=== PATIENT | male | born 1935 | race Caucasian/White ===

== ENCOUNTER 2020-06-08 07:16 | Day surgery (SDC) | payer MEDICARE, OTHER ==
[~2020-06-08] VITALS: Ht 170.2 cm; Wt 63.8 kg
[~2020-06-08 07:16] MED LIST: ASPI81CH; Amaryl1 MG; CENTRUM MEN'S1 EACH; FINA5; HYDCHL12.5; METANX CAPSULE1 EACH; METF500; Prinivil10 MG; Zocor20 MG
== END 2020-06-08 09:45 | disposition home or self-care (01) ==
LOC: ORSCSDS 07:16
PROVIDERS: Surgery
PROC: 0DJD8ZZ Inspection of Lower Intestinal Tract, Via Natural or Artificial Opening Endoscopic (ICD-10-PCS; principal; 2020-06-08 08:30)
DX: Z12.11 Encounter for screening for malignant neoplasm of colon (principal); Z86.010 Personal history of colon polyps; I10 Essential (primary) hypertension; E78.5 Hyperlipidemia, unspecified; E11.9 Type 2 diabetes mellitus without complications; Z87.891 Personal history of nicotine dependence; Z79.82 Long term (current) use of aspirin; Z79.84 Long term (current) use of oral hypoglycemic drugs; Z79.899 Other long term (current) drug therapy
CPT/HCPCS: 82947; J2704; J7120

== ENCOUNTER → 2023-02-06 | Outpatient (CLI) | payer MEDICARE, OTHER | LOC: LAB SHORT 14:34 → PLD 14:34 | DX: L57.0 Actinic keratosis (principal) | CPT/HCPCS: 88305 ==

== ENCOUNTER → 2023-02-19 | Outpatient (CLI) | payer MEDICARE, OTHER | LOC: LAB 14:28 → LAB SHORT 14:28 | DX: C44.622 Squamous cell carcinoma of skin of right upper limb, including shoulder (principal) | CPT/HCPCS: 88305 ==

== ENCOUNTER → 2023-11-28 | Outpatient (CLI) | payer MEDICARE, OTHER ==
[~2023-11-28] MED LIST changes: -ASPI81CH; +ASPI81CH PO; +BASAGLAR K100 UNIT/1; +FINA5 PO; -HYDCHL12.5; +HYDCHL25 PO; +JARDIANCE10 MG PO; -METF500; +METF500 PO; -Prinivil10 MG; +Prinivil10 MG PO; +ZOCOR20 MG PO
== END ==
LOC: LAB 11:23 → LAB SHORT 11:23
DX: E11.42 Type 2 diabetes mellitus with diabetic polyneuropathy (principal); E11.51 Type 2 diabetes mellitus with diabetic peripheral angiopathy without gangrene; L03.119 Cellulitis of unspecified part of limb; L60.0 Ingrowing nail; L60.3 Nail dystrophy; L97.509 Non-pressure chronic ulcer of other part of unspecified foot with unspecified severity
CPT/HCPCS: 87070; 87075; 87077; 87147; 87186; 87205

== ENCOUNTER 2023-12-18 06:37 | Day surgery (SDC) | payer MEDICARE, OTHER ==
[2023-12-18] VITALS (15 sets, daily range): BP systolic 128–153; BP diastolic 58–125
[~2023-12-18] VITALS: Ht 170.2 cm; Wt 62.7 kg
[~2023-12-18 06:37] MED LIST changes: +ERGO400 PO; +SULTRIDS PO
[2023-12-18] MEDS ORDERED: Heparin Sodium 1000 Units/ML 10ML MDV ONE (07:11)
[2023-12-18] MEDS ORDERED: NS 500 ML IV ONE (07:11)
[2023-12-18] MEDS ORDERED: NS 1,000 ML IV ONE ×2 (07:11→07:15)
[2023-12-18] MEDS ORDERED: Nitroglycerin 2 MG/20 ML BTL ONE (07:11)
[2023-12-18] MEDS ORDERED: Midazolam HCl 1MG / ML 2ML Vial ONE (07:15)
[2023-12-18] MEDS ORDERED: FentaNYL Citrate 50 MCG/ML 2 ML Injection ONE (07:15)
--- NOTE | 2023-12-18 09:05 | NUR ---
PT RETURNED TO RECOVERY IN BED. RIGHT FEMORAL GROIN SITE SOFT NON-TENDER WITH NO HEMATOMA, NO PULSATILE BLEEDING AND INTACT DRESSING. RIGHT PT DOPPLER PULSE. PT'S IN ROOM TO SEE PT. DR ABRAHAM IN ROOM TO SEE PT. CALL LIGHT IN REACH.
--- NOTE | 2023-12-18 10:12 | NUR ---
NO CHANGES TO R FEM GROIN SITE. R PT DOPPLER PULSE.
--- NOTE | 2023-12-18 10:16 | NUR ---
PT DRINKING COFFEE. PT EATING CHEESE AND GRAMCRAKERS. PT'S STILL IN ROOM.
--- NOTE | 2023-12-18 13:08 | NUR ---
NO CHANGES TO R FEM GROIN SITE. DISCHARGE INSTRUCTIONS REVIEWED WITH PT AND HIS ALL QUESTIONS ANSWERED. 20 G IV DISCONTINUED FROM RIGHT AC WITH INTACT CANNULA. PT AMBULATED TO BR TO VOID. PT ESCORTED OUT VIA WHEELCHAIR ESCORT.
== END 2023-12-18 12:55 | disposition home or self-care (01) ==
LOC: MHTC 06:37
DX: E11.51 Type 2 diabetes mellitus with diabetic peripheral angiopathy without gangrene (principal); E11.621 Type 2 diabetes mellitus with foot ulcer; L97.529 Non-pressure chronic ulcer of other part of left foot with unspecified severity; S81.802A Unspecified open wound, left lower leg, initial encounter; I10 Essential (primary) hypertension; E78.5 Hyperlipidemia, unspecified; E11.40 Type 2 diabetes mellitus with diabetic neuropathy, unspecified; Z87.891 Personal history of nicotine dependence; Z88.8 Allergy status to other drugs, medicaments and biological substances; Z79.899 Other long term (current) drug therapy; Z79.82 Long term (current) use of aspirin; X58.XXXA Exposure to other specified factors, initial encounter
CPT/HCPCS: 75625; 75710; 76937; 82947; 99152; 99153; C1760; C1769; C1887; C1894; J1644; J2250; J3010; J7030; J7050; Q9967